=== PATIENT | male | born 1945 | race Caucasian/White ===

== ENCOUNTER 2018-01-04 11:35 | Day surgery (SDC) | payer MEDICARE ==
[~2018-01-04 11:35] MED LIST: Buffered Lidocaine 0.9% SYRIN* 5 ML/SYR SYRINGE INTRADERM ONE
[2018-01-04] MEDS ORDERED: Midazolam* 1 MG/ML 2 ML VIAL (2 MG) ONE ×2 (13:58→14:00)
[2018-01-04 14:35] VITALS: BP 140/79
[2018-01-04] MEDS ORDERED: Cyclopentolate 1% OPTH.SOL* 2 ML BTL ONE (15:43)
[2018-01-04] MEDS ORDERED: Lidocaine 2% EPI 1:200000 MPF*10-20 ML VIAL ONE (15:43)
[2018-01-04] MEDS ORDERED: Ketorolac 0.5% OPHTH (NF) 0.5 % 5 ML BTL ONE (15:43)
[2018-01-04] MEDS ORDERED: acetaZOLAMIDE TAB* 250 MG ONE (15:43)
[2018-01-04] MEDS ORDERED: Neomycin/Polymy/Dex OPTH.SUSP* MAXITROL 0.1% 5 ML ONE (15:43)
[2018-01-04] MEDS ORDERED: Proparacaine 0.5% OPHTH.SOL* 15 ML BTL ONE (15:43)
[2018-01-04] MEDS ORDERED: Phenylephrine 2.5% OPTH.SOL* 2 ML BTL ONE (15:43)
[2018-01-04] MEDS ORDERED: Povidone Iodine 5% OPTH* 30 ML BTL ONE (15:43)
[2018-01-04] MEDS ORDERED: Lidocaine 1%* 5 ML VIAL ONE (15:43)
--- NOTE | 2018-01-05 04:57 | OP ---
DATE OF OPERATION: 01/04/18 [facility] DATE OF : 41 SURGEON: William Stevenson M.D. PREOPERATIVE DIAGNOSIS: Cataract, left eye. POSTOPERATIVE DIAGNOSIS: Cataract, left eye. OPERATIVE PROCEDURE: Extracapsular cataract extraction with intraocular lens implant, left eye. DESCRIPTION OF PROCEDURE: The patient was brought to the operating room after being given 1/2% Alcaine with epinephrine drops in the preoperative area. The eye was prepped and draped in the usual sterile fashion. Sterile drape and eyelid speculum were placed. Again, topical 1/2% Alcaine with epinephrine was given. A paracentesis incision was made at the 3 o'clock position with the No.75 blade. Clear cornea incision 2.2 x 2.2-mm was created at the 6 o'clock position starting at the anterior limbus using the 2.2-mm keratome. The anterior chamber was irrigated with 0.4 mL of 1% non-preservative intracameral lidocaine and filled with DisCoVisc. A capsulorrhexis was completed using the cystotome and the Utrata forceps. Hydrodissection was performed with balanced salt solution. The lens nucleus was removed with the Phacoemulsification handpiece without incident. Cortex was removed with the irrigation-aspiration handpiece. The capsular bag was re-inflated using DisCoVisc and an SN60WF 24.5 implant was inserted with the shooter. The irrigation-aspiration handpiece was used to remove all residual DisCoVisc. The eye was refilled with balanced salt solution and the wound checked and found to be watertight. Topical Maxitrol drops were given. [id number]/[facility] #: [id number] MTDD
== END 2018-01-11 13:48 | disposition home or self-care (01) ==
LOC: OREAST 11:35
PROVIDERS: ATTEND Specialist
DX: H25.812 Combined forms of age-related cataract, left eye (principal); H35.3132 Nonexudative age-related macular degeneration, bilateral, intermediate dry stage; Z85.51 Personal history of malignant neoplasm of bladder; J44.9 Chronic obstructive pulmonary disease, unspecified; K21.9 Gastro-esophageal reflux disease without esophagitis; Z87.891 Personal history of nicotine dependence
CPT/HCPCS: A9270-GY; J2250; V2632

== ENCOUNTER → 2018-01-11 | Day surgery (SDC) | payer MEDICARE ==
[~2018-01-11] MED LIST changes: +Acetaminophen TAB* 325 MG PO PRN; +Cyclopentolate 1% OPTH.SOL* 2 ML BTL ONE; +Ketorolac 0.5% OPHTH (NF) 0.5 % 5 ML BTL ONE; +Lidocaine 1%* 5 ML VIAL ONE; +Lidocaine 2% EPI 1:200000 MPF*10-20 ML VIAL ONE; +Midazolam* 1 MG/ML 5 ML VIAL (5 MG) ONE; +Neomycin/Polymy/Dex OPTH.SUSP* MAXITROL 0.1% 5 ML ONE; +Phenylephrine 2.5% OPTH.SOL* 2 ML BTL ONE; +Povidone Iodine 5% OPTH* 30 ML BTL ONE; +Proparacaine 0.5% OPHTH.SOL* 15 ML BTL ONE; +acetaZOLAMIDE TAB* 250 MG ONE; +fentaNYL* 50 MCG/ML 2 ML VIAL (100 MCG VIAL) ONE
[2018-01-11 13:44] VITALS: BP 134/72
--- NOTE | 2018-01-11 16:30 | OP ---
DATE OF OPERATION: 01/11/2018 - [facility] DATE OF : 1945. SURGEON: William Stevenson M.D. PREOPERATIVE DIAGNOSIS: Cataract right eye. POSTOPERATIVE DIAGNOSIS: Cataract right eye. OPERATIVE PROCEDURE: Extracapsular cataract extraction with intraocular lens implant right eye. DESCRIPTION OF PROCEDURE: The patient was brought to the operating room after being given 1/2% Alcaine with epinephrine drops in the preoperative area. The eye was prepped and draped in the usual sterile fashion. Sterile drape and eyelid speculum were placed. Again, topical 1/2% Alcaine with epinephrine was given. A paracentesis incision was made at the 9 o'clock position with the No.75 blade. Clear cornea incision 2.2 x 2.2-mm was created at the 12 o'clock position starting at the anterior limbus using the 2.2-mm keratome. The anterior chamber was irrigated with 0.4 mL of 1% non-preservative intracameral lidocaine and filled with DisCoVisc. A capsulorrhexis was completed using the cystotome and the Utrata forceps. Hydrodissection was performed with balanced salt solution. The lens nucleus was removed with the Phacoemulsification handpiece without incident. Cortex was removed with the irrigation-aspiration handpiece. The capsular bag was re-inflated using DisCoVisc and an [id number] 25 implant was inserted with the shooter. The irrigation-aspiration handpiece was used to remove all residual DisCoVisc. The eye was refilled with balanced salt solution and the wound checked and found to be watertight. Topical Maxitrol drops were given. [id number]/[facility] #: [id number] [facility]
== END | disposition home or self-care (01) ==
LOC: OREAST 10:54
PROVIDERS: ATTEND Specialist
DX: H25.811 Combined forms of age-related cataract, right eye (principal); H35.3132 Nonexudative age-related macular degeneration, bilateral, intermediate dry stage; Z87.891 Personal history of nicotine dependence; I10 Essential (primary) hypertension; K21.9 Gastro-esophageal reflux disease without esophagitis; Z85.89 Personal history of malignant neoplasm of other organs and systems; Z85.51 Personal history of malignant neoplasm of bladder
CPT/HCPCS: A9270-GY; J2250; J3010; V2632

== ENCOUNTER 2019-05-21 23:20 | Emergency (ER) | payer MEDICARE ==
--- OUTSIDE RECORDS SUMMARY | 2019-05-21 23:35 | XMS REPORT | Summary of Care ---
:1945 Author Organization [facility] Address [address] [place] [place] [address] Care Team Providers Name Role Phone ZhangOsiel Ran Primary Care Provider Reason for Visit Reason Comments Cough started 2-3 weeks ago, runny nose, coughing, mucous(clear) Encounter Details Date Type Department Care Team Description 05/01/2019 Office Visit [place] [facility] Jono Johnston, Obstructive chronic Medicine [place] bronchitis with acute [address] exacerbation (HCC) [place] [address] [place] [address] (Primary Dx) [phone] Allergies Active Allergy Reactions Severity Noted Date Comments Penicillins 02/04/2004 documented as of this encounter (statuses as of 05/01/2019) Medications Medication Sig Dispensed Refills Start Date End Date Status Multiple Vitamin Take by mouth 0 Active (MULTI-VITAMIN DAILY DAILY. PO) aspirin 81 MG Oral Take 1 Tab by 30 Tab 0 05/16/2018 Active Tab EC mouth DAILY. Potassium 99 MG Oral Take 99 mg by 0 Active Tab mouth DAILY. atorvastatin Take 1 Tab by 90 Tab 3 06/12/2018 Active (LIPITOR) 40 MG Oral mouth EVERY TabIndications: BEDTIME. Coronary artery disease involving [place] coronary artery of [place] heart without angina pectoris hydrOXYzine HCL Take 1 Tab by 60 Tab 5 06/19/2018 Active (ATARAX) 25 MG Oral mouth EVERY EIGHT Tab HOURS NEEDED (anxiety). ALPRAZolam (XANAX) Take 0.5 mg by 0 Active 0.5 MG Oral Tab mouth TWO TIMES DAILY NEEDED. Multiple Take 1 Cap by 0 Active Vitamins-Minerals mouth TWICE DAILY. (ICAPS AREDS 2) Oral Cap MELATONIN PO Take by mouth 0 Active NEEDED. CALCIUM-VITAMIN D PO Take 1 Tab by 0 Active mouth DAILY. Tamsulosin HCl Take 1 Cap by 90 Cap 3 09/07/2018 Active (FLOMAX) 0.4 MG Oral mouth DAILY. Cap FLOVENT HFA 220 TAKE 2 PUFFS BY 12 Inhaler 3 02/13/2019 Active MCG/ACT Inhalation INHALATION TWICE Aerosol DAILY. Ranitidine 150 MG TAKE 1 CAPSULE BY 180 Cap 1 2019 Active Oral Cap MOUTH TWICE A DAY ANORO ELLIPTA 62.5-25 INHALE 1 PUFF 60 Each 5 03/29/2019 Active MCG/INH Inhalation DAILY AEROSOL POWDER, BREATH ACTIVATED albuterol HFA INHALE 2 PUFFS 54 Inhaler 2 04/18/2019 Active (VENTOLIN) 108 (90 EVERY 4 HOURS Base) MCG/ACT NEEDED FOR Inhalation Aero Soln WHEEZE/COUGH azithromycin Take 2 pills on 6 Tab 0 05/01/2019 Active (ZITHROMAX Z-ORIANA) 250 the first day and MG Oral 1 pill each day TabIndications: for 4 days Obstructive chronic bronchitis with acute exacerbation (HCC) predniSONE Take 2 Tabs by 10 Tab 0 05/01/2019 Active (DELTASONE) 20 MG mouth DAILY. Oral TabIndications: Obstructive chronic bronchitis with acute exacerbation (HCC) Benzonatate 200 MG Take 1 Cap by 42 Cap 0 05/01/2019 Active Oral Cap mouth THREE TIMES DAILY NEEDED (For cough). documented as of this encounter (statuses as of 05/01/2019) Active Problems Problem Noted Date Dysphagia 06/22/2018 Cancer Survivorship 06/13/2018 Overview: Cancer Goal Cancer Survivorship Care Plan Survivorship Treatment Summary [facility] [address] [facility]. [place] [address] PHONE: [phone] Patient Information: NAME: Avtar Galloway : 1945 Diagnosis and Staging: Erick 3+3 prostate cancer on a background of PSA 4.3 04/22/2017 Surgery: N/A Chemotherapy/Endocrine therapy: N/A Radiation Therapy: N/A Clinical Trial: N/A Genetic/Mutation Testing: N/A Ongoing Treatment: N/A Cancer Care Team: (include institution of [facility]) Urologist: Aashish Steinberg MD Phone: [phone] Nurse Practitioner: Angelina Mcmillan NP Phone: [phone] Cancer Surveillance or other Recommended Tests Prostate Cancer (N1 on ADT or Localized on observation) Physical exam + PSA every 3-6 months Bone imaging for symptoms and as often as every 6-12 months Cancer survivors may experience possible late and/or Long-Term Effect. If you have any concerns in these or other areas, please speak with your health care providers to find out how you can get help with them. Anxiety or depression, Emotional and mental health, Fatigue, Bladder/Bowel problems, Fertility, Osteoporosis, Lung problems, Memory or concentration loss, Second cancer, Cardiac issues, Nail/Skin issues , Hot flashes, Sexual functioning, Dental/Mouth problems, Weight changes and Peripheral Neuropathy Any of these new, unusual and/or persistent symptoms should be brought to the attention of your provider: Swelling of arms and legs, Unintentional Weight Loss, Nausea and Vomiting, Cough, Fatigue, Numbness, Night sweats, Unexplained fever, New lumps, Loss of appetite, Chest discomfort, Unusual bleeding, Sharee rtness of breath or problems breathing, Change in bowel habits, Depression/ Emotional changes and Change in moles or any skin changes/lesions Resources you may be interested in: www.cancer.net Other comments: Prepared by: Kesha Leihg RN Delivered by: Delivered on: This Survivorship Care Plan is a cancer treatment summary and follow-up plan and is provided to you to keep with your health care records and to share with your primary care provider or any of your doctors and nurses. This summary is a brief record of major aspects of your cancer treatment not a detailed or comprehensive record of your care. Take all prescribed medications as directed This is an individualized self-management goal for Avtar Galloway: Please take all prescribed medications as directed. 1. Do not skip doses. If you cannot afford your medications, talk with your doctor. 2. Use a pill reminder system such as a pill box if needed. Your pharmacist can help you with this. 3. Contact your Pharmacy 5 days before your medication runs out. If you cannot take your medications for any reasons, talk with your doctor. 4. Please bring all of your medication bottles and inhalers (or a list of all your medications/inhalers) with you to every visit. Potential barriers to meeting all of your care plan goals will continue to be addressed on an ongoing basis. 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 Non-cardiac chest pain 04/18/2007 Elevated prostate specific antigen (PSA) 04/18/2007 Overview: 6.0 2005. Personal history of tobacco use, presenting hazards to health 04/18/2007 Deafness 04/18/2007 Overview: Right ear S/p right ear surgery 1970s due to meniere's disease documented as of this encounter (statuses as of 05/01/2019) Resolved Problems Problem Noted Date Resolved Date Gross hematuria 04/30/2017 05/08/2018 Acute cystitis with hematuria 04/30/2017 05/08/2018 documented as of this encounter (statuses as of 05/01/2019) Immunizations Name Administration Dates Next Due Influenza (IM) Preservative Free 01/02/2018, 02/25/2014, 01/23/2010 Influenza Vaccine 65 Yrs + 02/22/2019 Influenza Vaccine High Dose 01/13/2017, 02/03/2015 PNEUMOCOCCAL POLYSACCHARIDE VACCINE 02/25/2009 Pneumococcal Conjugate(13 Valent) 01/12/2017 TDAP Vaccine 02/20/2008 documented as of this encounter Social History Tobacco Use Types Packs/Day Years Used Date Former Smoker Cigars, Cigarettes 1.5 40 Quit: 02/03/2008 Smokeless Tobacco: Never Used Comments: patient quit cigarettes years before cigars Alcohol Use Drinks/Week oz/Week Comments Yes 7 Shots of liquor 7.0 beer, wine, whiskey on occasion--has a night cap with his neighbor Social Isolation Answer Date Recorded In a typical week, how many times do you More than three times a week 2018 talk on the phone with family, friends, or neighbors? How often do you get together with friends More than three times a week 05/08 or relatives? How often do you attend jew or 1 to 4 times per year 05/08/2018 christianity services? Do you belong to any clubs or Yes 05/08/2018 organizations such as jew groups, unions, fraternal or athletic groups, or school groups? How often do you attend meetings of the More than 4 times per year 05/08/2018 clubs or organizations you belong to? Are you now , , , 05/08/2018 , never or living with a partner? Physical Activity Answer Date Recorded On average, how many days per week do you engage in moderate to 0 days 2018 strenuous exercise (like walking fast, running, jogging, dancing, swimming, biking, or other activities that cause a light or heavy sweat)? On average, how many minutes do you engage in exercise at this 0 min 2018 level? Stress Answer Date Recorded Do you feel stress - tense, restless, nervous, or Only a little 05/08/2018 anxious, or unable to sleep at night because your mind is troubled all the time - these days? Financial Resource Strain Answer Date Recorded How hard is it for you to pay for the very basics like Not hard at all 2018 food, housing, medical care, and heating? Intimate Partner Violence Answer Date Recorded Within the last year, have you been afraid of your partner or No 05/08/2018 ex-partner? Within the last year, have you been humiliated or emotionally No 05/08/2018 abused in other ways by your partner or ex-partner? Within the last year, have you been kicked, hit, slapped, or No 05/08/2018 otherwise physically hurt by your partner or ex-partner? Within the last year, have you been raped or forced to have any No 05/08/2018 kind of sexual activity by your partner or ex-partner? Food Insecurity Answer Date Recorded Within the past 12 months, you worried that your food would Never true 2018 run out before you got money to buy more. Within the past 12 months, the food you bought just didn't Never true 2018 last and you didn't have money to get more. Transportation Needs Answer Date Recorded In the past 12 months, has lack of transportation kept you from No 05/08/2018 medical appointments or from getting medications? In the past 12 months, has lack of transportation kept you from No 05/08/2018 meetings, work, or getting things needed for daily living? Sex Assigned at Date Recorded Not on file Job Start Date Occupation Industry Not on file Not on file Not on file Travel History Travel Start Travel End No recent travel history available. documented as of this encounter Last Filed Vital Signs Vital Sign Reading Time Taken Comments Blood Pressure 130/61 05/01/2019 1:24 PM EST Pulse 62 05/01/2019 1:24 PM EST Temperature 36.8 05/01/2019 1:24 PM EST C (98.2 F) Respiratory Rate - - Oxygen Saturation 98% 05/01/2019 1:24 PM EST Inhaled Oxygen Concentration - - Weight 77.6 kg (171 lb) 05/01/2019 1:24 PM EST Height 175.3 cm (5' 9") 05/01/2019 1:24 PM EST Body Mass Index 25.25 05/01/2019 1:24 PM EST documented in this encounter Patient Instructions Patient InstructionsJono Johnston PA - 05/01/2019 1:20 PM ESTZ-Pack and Prednisone sent in. Make sure you complete the course of antibiotics. Call with any questions or concerns. Follow up as needed.Electronically signed by Jono Johnston PA at 2019 1:46 PM EST documented in this encounter Progress Notes Jono Johnston PA - 05/01/2019 1:20 PM EST PATIENT: Avtar Galloway : 1945 DATE OF SERVICE: 05/01/2019 Subjective SUBJECTIVE: Avtar Galloway is a 74-y.o. male who presents for evaluation of productive cough with sputum described as clear, repetitive sneezing and sore throat. Symptoms began 3 weeks ago and are gradually worsening since that time. Past history is significant for frequent episodes of bronchitis, chronic obstructive pulmonary disease and tobacco abuse. Past Medical History: Diagnosis Date Acute cystitis with hematuria 04/30/2017 Arthritis Deafness 04/18/2007 Dyspnea on exertion 04/18/2007 Elevated prostate specific antigen (PSA) 04/18/2007 Gastroesophageal reflux disease without esophagitis 04/30/2017 Hypertrophy of prostate without urinary obstruction and other lower urinary tract symptoms (LUTS) 04/18/2007 Nocturia 04/18/2007 Obstructive chronic bronchitis with exacerbation (HCC) 04/18/2007 Other chest pain Personal history of tobacco use, presenting hazards to health 04/18/2007 Urinary frequency 04/18/2007 Family History Problem Relation Age of Onset Heart Father Heart Mother Current Outpatient Medications Medication Sig albuterol HFA (VENTOLIN) 108 (90 Base) MCG/ACT Inhalation Aero Soln INHALE 2 PUFFS EVERY 4 HOURS NEEDED FOR WHEEZE/COUGH ALPRAZolam (XANAX) 0.5 MG Oral Tab Take 0.5 mg by mouth TWO TIMES DAILY NEEDED. ANORO ELLIPTA 62.5-25 MCG/INH Inhalation AEROSOL POWDER, BREATH ACTIVATED INHALE 1 PUFF DAILY aspirin 81 MG Oral Tab EC Take 1 Tab by mouth DAILY. atorvastatin (LIPITOR) 40 MG Oral Tab Take 1 Tab by mouth EVERY BEDTIME. azithromycin (ZITHROMAX Z-ORIANA) 250 MG Oral Tab Take 2 pills on the first day and 1 pill each day for 4 days Benzonatate 200 MG Oral Cap Take 1 Cap by mouth THREE TIMES DAILY NEEDED (For cough). CALCIUM-VITAMIN D PO Take 1 Tab by mouth DAILY. FLOVENT HFA 220 MCG/ACT Inhalation Aerosol TAKE 2 PUFFS BY INHALATION TWICE DAILY. hydrOXYzine HCL (ATARAX) 25 MG Oral Tab Take 1 Tab by mouth EVERY EIGHT HOURS NEEDED (anxiety). MELATONIN PO Take by mouth NEEDED. Multiple Vitamin (MULTI-VITAMIN DAILY PO) Take by mouth DAILY. Multiple Vitamins-Minerals (ICAPS AREDS 2) Oral Cap Take 1 Cap by mouth TWICE DAILY. Potassium 99 MG Oral Tab Take 99 mg by mouth DAILY. predniSONE (DELTASONE) 20 MG Oral Tab Take 2 Tabs by mouth DAILY. Ranitidine 150 MG Oral Cap TAKE 1 CAPSULE BY MOUTH TWICE A DAY Tamsulosin HCl (FLOMAX) 0.4 MG Oral Cap Take 1 Cap by mouth DAILY. No current facility-administered medications for this visit. Allergies Allergen Reactions Pcn [Penicillins] Social History Socioeconomic History Marital status: Spouse name: Not on file Number of children: Not on file Years of education: Not on file Highest education level: Not on file Occupational History Not on file Social Needs Financial resource strain: Not hard at all Food insecurity Worry: Never true Inability: Never true Transportation needs Medical: No Non-medical: No Tobacco Use Smoking status: Former Smoker Packs/day: 1.50 Years: 40.00 Pack years: 60.00 Types: Cigars, Cigarettes Last attempt to quit: 02/03/2008 Years since quittin.2 Smokeless tobacco: Never Used Tobacco comment: patient quit cigarettes years before cigars Substance and Sexual Activity Alcohol use: Yes Alcohol/week: 7.0 standard drinks Types: 7 Shots of liquor per week Comment: beer, wine, whiskey on occasion--has a night cap with his neighbor Drug use: No Sexual activity: Yes Partners: Female Lifestyle Physical activity Days per week: 0 days Minutes per session: 0 min Stress: Only a little Relationships Social connections Talks on phone: More than three times a week Gets together: More than three times a week Attends christianity service: 1 to 4 times per year Active member of club or organization: Yes Attends meetings of clubs or organizations: More than 4 times per year Relationship status: Intimate partner violence Fear of current or ex partner: No Emotionally abused: No Physically abused: No Forced sexual activity: No Other Topics Concern Back Care Not Asked Bike Helmet Not Asked Blood Transfusions Not Asked Caffeine Concern Not Asked Exercise Yes Comment: walking Hobby Hazards Not Asked International Travel Not Asked Service Not Asked Occupational Exposure Not Asked Seat Belt Not Asked Self-Exams Not Asked Sleep Concern Not Asked Special Diet No Stress Concern Not Asked Weight Concern No Social History Narrative Retired- 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 Negative for chills, fever and weight loss. HENT: Positive for congestion and sore throat. Negative for ear pain. Eyes: Negative for pain and discharge. Respiratory: Positive for cough and sputum production. Negative for shortness of breath and wheezing. Cardiovascular: Negative for chest pain, palpitations and leg swelling. Gastrointestinal: Negative for diarrhea, heartburn, nausea and vomiting. Genitourinary: Negative for dysuria and urgency. Musculoskeletal: Negative for myalgias and neck pain. Neurological: Negative for dizziness, weakness and headaches. Objective OBJECTIVE: BP 130/61 (BP Location: Right arm, Patient Position: Sitting) | Pulse 62 | Temp 98.2 F (36.8 C) (Tympanic) | Ht 5' 9" (1.753 m) | Wt 171 lb ( 77.6 kg) | SpO2 98% | BMI 25.25 kg/m GENERAL: alert, cooperative, no distress. CYANOSIS: absent. HEENT: ears, nose, throat exam normal, no neck nodes or sinus tenderness. LUNGS: Diminished to ausculation, most likely a result of his COPD. HEART: regular rate and rhythm, S1, S2 normal, no murmur, click, rub or gallop. ABDOMEN: soft, non-tender. Bowel sounds normal. No masses, no organomegaly. EXTREMITIES: extremities normal, atraumatic, no cyanosis or edema. NEUROLOGICAL: alert, oriented times three, no defects noted in general exam. ASSESSMENT: ICD-9-CM ICD-10-CM 1. Obstructive chronic bronchitis with acute exacerbation (HCC) 491.21 J44.1 azithromycin (ZITHROMAXZ-ORIANA) 250 MG Oral Tab predniSONE (DELTASONE) 20 MG Oral Tab Plan PLAN: 1. Antibiotics and prednisone per orders, prescribed based on high risk of bacterial infection due to history of COPD. 2. Rest, fluids, acetaminophen, [id number], cough syrups as needed, and humidification. 3. Recheck as needed for persistence, worsening, appearance of new symptoms. Author: POOL Aparicio 05/01/2019 17:16 documented in this encounter Plan of Treatment Date Type Specialty Care Team Description 06/20/2019 Office Visit Urology Aashish Steinberg MD [address] [place] [address] Health Maintenance Due Date Last Done Comments HIV SCREENING 1958 ZOSTER IMMUNIZATION SERIES 1993 (1 of 2) MEDICARE ANNUAL WELLNESS 04/14/2016 04/14/2015, 04/14/2015 VISIT DTaP/Tdap/Td Vaccines (2 - 2018 02/20/2008 Tdap) FALL RISK ASSESSMENT 06/23/2019 06/22/2018, 06/22/2018 LUNG CANCER SCREENING 07/13/2019 07/12/2018 DEPRESSION SCREENING 05/01/2020 05/01/2019 Colonoscopy 02/28/2021 02/28/2018, 02/28/2018, 02/20/2018, Additional history exists PNEUMOCOCCAL 65+YRS Completed 01/12/2017, 02/25/2009 INFLUENZA VACCINE Completed 02/22/2019, 01/02/2018, 01/13/2017, Additional history exists HEPATITIS A IMMUNIZATION Aged Out No longer eligible SERIES based on patient's age to complete this topic HPV IMMUNIZATION SERIES Aged Out No longer eligible based on patient's age to complete this topic MENINGOCOCCAL VACCINE IMM Aged Out No longer eligible based on patient's age to complete this topic documented as of this encounter Goals Goal Patient Goal Associated Recent Patient-Stated? Author Type Problems Progress Blood Pressure Blood Pressure 130/61 No [place], < 150/90 (05/01/2019 Osiel Tong, 1:24 PM EST) Note: This is an individualized treatment (blood pressure) goal for Avtar Galloway: Displayed above (on the left) is your goal for blood pressure control. Your most recent blood pressure is also shown above, on the right. You should try to achieve blood pressures that are lower than your goal listed above (on the left). Cancer Survivorship Care Plan Cancer Cancer Survivorship No Kesha Leigh RN Note: Survivorship Treatment Summary [address] [place] [address] PHONE: [phone] Patient Information: NAME: Avtar Galloway : 1945 Diagnosis and Staging: [place] 3+3 prostate cancer on a background of PSA 4.3 04/22/2017 Surgery: N/A Chemotherapy/Endocrine therapy: N/A Radiation Therapy: N/A Clinical Trial: N/A Genetic/Mutation Testing: N/A Ongoing Treatment: N/A Cancer Care Team: (include institution of [facility]) Urologist: Aashish Steinberg MD Phone: [phone] Nurse Practitioner: Angelina Mcmillan NP Phone: [phone] Cancer Surveillance or other Recommended Tests Prostate Cancer (N1 on ADT or Localized on observation) Physical exam + PSA every 3-6 months Bone imaging for symptoms and as often as every 6-12 months Cancer survivors may experience possible late and/or Long-Term Effect. If you have any concerns in these or other areas, please speak with your health care providers to find out how you can get help with them. Anxiety or depression, Emotional and mental health, Fatigue, Bladder/Bowel problems, Fertility, Osteoporosis, Lung problems, Memory or concentration loss, Second cancer, Cardiac issues, Nail/Skin issues , Hot flashes, Sexual functioning, Dental/Mouth problems, Weight changes and Peripheral Neuropathy Any of these new, unusual and/or persistent symptoms should be brought to the attention of your provider: Swelling of arms and legs, Unintentional Weight Loss, Nausea and Vomiting, Cough, Fatigue, Numbness, Night sweats, Unexplained fever, New lumps, Loss of appetite, Chest discomfort, Unusual bleeding, Sharee rtness of breath or problems breathing, Change in bowel habits, Depression/ Emotional changes and Change in moles or any skin changes/lesions Resources you may be interested in: www.cancer.net Other comments: Prepared by: Kesha Leigh RN Delivered by: Delivered on: This Survivorship Care Plan is a cancer treatment summary and follow-up plan and is provided to you to keep with your health care records and to share with your primary care provider or any of your doctors and nurses. This summary is a brief record of major aspects of your cancer treatment not a detailed or comprehensive record of your care. Work with your Lei Maker Fadia Tee, AMELIA Note: This is an individualized treatment (frequent ED use) goal for Avtar Galloway: Please work with your Lei Maker, who will assist you in meeting your goals of care. Keep immunizations current Lifestyle Osiel Neville MD Note: This is an individualized lifestyle goal for Avtar Galloway: Please be sure to keep up-to-date on recommended immunizations. For example, this would include a yearly influenza vaccine. Immunization status can be seen by looking at the Health Maintenance sections of your [facility], Plan of Care, and any After Visit Summaries. Regular appointments with primary care provider Fadia Howard RN (PCP) Note: This is an individualized lifestyle goal for Avtar Galloway: Please schedule regular visits with your primary care provider (PCP). Care provided in your PCP's office can help reduce your need for additional trips to the Emergency Room. Take all prescribed medications as Self-management Osiel Neville MD directed Note: This is an individualized self-management goal for Avtar Galloway: Please take all prescribed medications as directed. 1. Do not skip doses. If you cannot afford your medications, talk with your doctor. 2. Use a pill reminder system such as a pill box if needed. Your pharmacist can help you with this. 3. Contact your Pharmacy 5 days before your medication runs out. If you cannot take your medications for any reasons, talk with your doctor. 4. Please bring all of your medication bottles and inhalers (or a list of all your medications/inhalers) with you to every visit. Potential barriers to meeting all of your care plan goals will continue to be addressed on an ongoing basis. documented as of this encounter Implants Implanted Type Area Aviation Neuropsychologist Device Shelf Model / Serial Identifier Expiration / Lot Date Resolution 360 [employer] 11/27/2020 [id number] / Implanted: Qty: 4 on 02/28/2018 by Khurram Estrella MD at [facility] / [id number] Description:TEMPORARY COLONIC CLIP - To be charged by GI documented as of this encounter Results Not on filedocumented in this encounter Visit Diagnoses Diagnosis Obstructive chronic bronchitis with acute exacerbation (HCC) Obstructive chronic bronchitis with exacerbation documented in this encounter Insurance Payer Benefit Plan / Subscriber ID Effective Dates Phone Address Type Group AETNA MEDICARE [id number] [facility]Present [place], [place]([id number]) Guarantor Name Account Type Relation to Date of Phone Billing Patient Address Avtar Galloway Personal/Family [address] (Home) [address] [place] (Work) [phone] documented as of this encounter Advance Directives Code Status Date Activated Date Inactivated Comments Full Code 07/12/2018 3:44 AM 07/14/2018 1:24 PM 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 Yes Order was discussed with: Patient I discussed all options and patient/surrogate requested and agreed to: Full Code Full Code 05/08/2018 11:32 AM 05/15/2018 9:01 PM Does the patient have decision making capacity? Yes Order was discussed with: Patient I discussed all options and patient/surrogate requested and agreed to: Full Code Full Code 02/27/2018 2:29 AM 03/01/2018 5:45 PM Does patient have decision making capacity? yes Order discussed with: Patient I discussed all options and patient/surrogate requested and agreed to: Full Code Full Code 04/30/2017 1:13 PM 05/02/2017 12:18 PM Does patient have decision making capacity? yes Order discussed with: Patient I discussed all options and patient/surrogate requested and agreed to: Full Code Full Code 04/05/2017 9:35 AM 04/05/2017 2:26 PM Does patient have decision making capacity? yes
[2019-05-22 00:52] LABS: ABS Eosinophils 0.1 10^3/ul (0-0.6); ABS Lymphocytes 1.5 10^3/ul (1.0-4.8); ABS Monocytes 0.8 10^3/ul (0-0.8); ABS Neutrophils 7.4 10^3/ul (1.5-7.7); Eosinophil % 1.2 %; Hematocrit 40 % (42-52); Hemoglobin 13.5 g/dL (14.0-18.0); Lymphocyte % 15.3 %; Mean Corpuscular HGB Conc 34 g/dL (31-36); Mean Corpuscular Hemoglobin 32 pg (27-31); Mean Corpuscular Volume 93 fL (80-94); Mean Platelet Volume 7.8 fL (7.4-10.4); Platelet Count 255 10^3/uL (150-450); Red Blood Count 4.29 10^6 /uL (4.18-5.48); Red Cell Distribution Width 15 % (10-15); White Blood Count 9.9 10^3/uL (3.5-10.8)
--- NOTE | 2019-05-22 01:04 | ED ---
Head Injury - HPI Summary HPI Summary: 74-year-old male presents with head injury today. He is walking the stairs and ended up falling hitting his head. He passed out with the fall. He does not remember the event. Tetanus up-to-date. He has a contusion and abrasion to head. Also complaining of right thumb pain. Has laceration to right thumb. tetanus up-to-date. Denies any chest pain or shortness breath. No dizziness. No nausea or vomiting. Denies any neck pain. No change in vision. is right handed. - History Of Current Complaint Chief Complaint: EDHeadInjury Stated Complaint: FALL PER PT Time Seen by Provider: 05/21/19 23:42 Pain Intensity: 8 - Allergies/Home Medications Allergies/Adverse Reactions: Allergies Allergy/AdvReac Type Severity Reaction Status Date / Time Penicillins Allergy Unknown Verified 05/21/19 23:24 Reaction Details PMH/Surg Hx/FS Hx/Imm Hx Endocrine/Hematology History: Denies: Hx Anticoagulant Therapy Cardiovascular History: Reports: Hx Hypertension GI History: Reports: Hx Gastroesophageal Reflux Disease History: Reports: Other Problems/Disorders - BPH, bladder cancer, hx hematuria Musculoskeletal History: Reports: Hx Arthritis Sensory History: Reports: Hx Cataracts - bilateral, Hx Contacts or Glasses - glasses Opthamlomology History: Reports: Hx Cataracts - bilateral, Hx Contacts or Glasses - glasses Psychiatric History: Reports: Hx Anxiety - prn meds - Surgical History Surgery Procedure, Year, and Place: bladder cancer surgery with prostate biopsy - [facility]. tonsillectomy as a child Hx Anesthesia Reactions: No - Immunization History Immunizations Up to Date: Yes Infectious Disease History: No Infectious Disease History: Denies: Traveled Outside the [place] in Last 30 Days - Social History Alcohol Use: Daily Alcohol Amount: one glass bourbon daily Substance Use Type: Reports: None Smoking Status (MU): Former Smoker Type: Cigars Amount Used/How Often: 1 ppd small cigars for 40 yrs Review of Systems Negative: Fever Negative: Chest Pain Negative: Shortness Of Breath Positive: Myalgia - right thumb pain Positive: Other - thumb laceration Positive: Headache All Other Systems Reviewed And Are Negative: Yes Physical Exam Triage Information Reviewed: Yes Vital Signs On Initial Exam: Initial Vitals Temp Pulse Resp BP Pulse Ox 98.2 F 87 18 122/82 94 05/21/19 23:23 05/21/19 23:23 05/21/19 23:23 05/21/19 23:23 05/21/19 23:23 Vital Signs Reviewed: Yes Appearance: Positive: Well-Appearing Skin: Positive: Warm, Dry, Other - 1cm by 1/2cm laceration to right thumb Head/Face: Positive: Normal Head/Face Inspection, Other - contusion and abrasion to forehead Eyes: Positive: Normal, EOMI, ROBB, Conjunctiva Clear ENT: Positive: Pharynx normal, TMs normal Neck: Positive: Other: - nontender neck Respiratory/Lung Sounds: Positive: Clear to Auscultation, Breath Sounds Present Cardiovascular: Positive: Normal, RRR Musculoskeletal: Positive: Other - tenderness snuff box and right thumb pain, good pulses, sensation grossly intact Neurological: Positive: Sensory/Motor Intact, Alert, Oriented to Person Place, Time, CN Intact II-III Psychiatric: Positive: Normal - Sivan Coma Scale Best Eye Response: 4 - Spontaneous Best Motor Response: 6 - Obeys Commands Best Verbal Response: 5 - Oriented Coma Scale Total: 15 Procedures - Sedation Patient Received Moderate/Deep Sedation with Procedure: No - Laceration/Wound Repair 1 Location: Other - right thumb lac Description: Linear Length, Depth and Shape: 1 and 1/2cm lac Closure: Skin Adhesive Diagnostics - Vital Signs Vital Signs Temp Pulse Resp BP Pulse Ox 05/22/19 00:41 19 168/93 05/22/19 00:10 75 12 132/83 97 05/22/19 00:00 80 13 96 05/21/19 23:42 79 8 96 05/21/19 23:40 77 18 152/96 96 05/21/19 23:38 81 96 05/21/19 23:23 98.2 F 87 18 122/82 94 - Laboratory Lab Results: Lab Results 05/22/19 Range/Units 00:43 WBC 9.9 (3.5-10.8) 10^3/uL RBC 4.29 (4.18-5.48) 10^6 /uL Hgb 13.5 L (14.0-18.0) g/dL Hct 40 L (42-52) % MCV 93 (80-94) fL MCH 32 H (27-31) pg MCHC 34 (31-36) g/dL RDW 15 (10-15) % Plt Count 255 (150-450) 10^3/uL MPV 7.8 (7.4-10.4) fL Neut % (Auto) 75.5 % Lymph % (Auto) 15.3 % Meagher % (Auto) 7.8 % Eos % (Auto) 1.2 % Baso % (Auto) 0.2 % Absolute Neuts (auto) 7.4 (1.5-7.7) 10^3/ul Absolute Lymphs (auto) 1.5 (1.0-4.8) 10^3/ul Absolute Monos (auto) 0.8 (0-0.8) 10^3/ul Absolute Eos (auto) 0.1 (0-0.6) 10^3/ul Absolute Basos (auto) 0.0 (0-0.2) 10^3/ul Absolute Nucleated RBC 0.0 10^3/ul Nucleated RBC % 0.0 Result Diagrams: 05/22/19 00:43 05/22/19 00:43 Lab Statement: Any lab studies that have been ordered have been reviewed, and results considered in the medical decision making process. - Radiology hand Radiology Interpretation Completed By: ED Physician Summary of Radiographic Findings: no fracture - CT Brain CT CT Interpretation Completed By: ED Physician Summary of CT Findings: 1. Left frontal subcutaneous hematoma/contusion. No traumatic intracranial. abnormalities. 2. Age-related atrophy and moderate chronic small vessel ischemic disease. ED physician has reviewed this report. Cervical Spine CT CT Interpretation Completed By: ED Physician Summary of CT Findings: 1. No cervical spine traumatic abnormalities. 2. Mild multilevel cervical spondylopathy. 3. Severe emphysema. ED physician has reviewed this report. - EKG 0029 Cardiac Rate: NL - 80 BPM EKG Rhythm: Sinus Rhythm ST Segment: Normal Ectopy: None Summary of EKG Findings: NSR at 80 BPM, P waves, QRS complex, and T waves are within normal limits, T waves and intervals are normal, no ischemic changes. This is a normal EKG. Interpreted by Dr. Dyson at 0122 05/22/2019. Head Injury Course/Dx Course Of Treatment: 74-year-old male presents with head injury today. He is walking the stairs and ended up falling hitting his head. He passed out with the fall. He does not remember the event. Tetanus up-to-date. He has a contusion and abrasion to head. Also complaining of right thumb pain. Has laceration to right thumb. tetanus up-to-date. Denies any chest pain or shortness breath. No dizziness. No nausea or vomiting. Denies any neck pain. No change in vision. is right handed. On exam has superficial laceration to right thumb. Tenderness over thumb and snuffbox. Neurovascularly intact. X- ray shows arthritis and no definitive fracture. Gave him thumb spica splint and told to keep on area. told follow up with ortho. Has a normal neuro exam. Contusion and abrasion of the forehead. CT brain and neck normal. Gave head injury precautions. told follow up with primary. Patient understands and agrees with plan. - Diagnoses Differential Diagnosis/HQI/PQRI: Concussion Without LOC, Contusion, Laceration Provider Diagnoses: Head injury, Laceration of right hand, Injury of right hand Discharge ED - Sign-Out/Discharge Documenting (check all that apply): Patient Departure - Discharge Plan Condition: Good Disposition: HOME Patient Education Materials: Head Injury (ED), Skin Adhesive Care (ED) Referrals: Osiel Holcomb MD [Primary Care Provider] - Parth Rod MD [Medical Doctor] - Additional Instructions: Place ice on area as needed Take Tylenol for headache every 6 hours keep glue dry for next 24 hours keep splint on area follow up with ortho Modify activities as tolerated Follow up with primary within 5 days Return to ED if develop any new or worsening symptoms - Billing Disposition and Condition Condition: GOOD Disposition: Home
[2019-05-22 01:10] LABS: Albumin 4.4 g/dL (3.2-5.2); Calcium 9.1 mg/dL (8.6-10.3); Potassium 3.8 mmol/L (3.5-5.0); Total Bilirubin 0.3 mg/dL (0.2-1.0)
[2019-05-22 01:16] LABS: Albumin/Globulin Ratio 1.6 (1-3); BUN/Creatinine Ratio 15.1 (8-20); EGFR African American 104.6 (>60); EGFR Non-African American 86.5 (>60); Globulin 2.7 g/dL (2-4); Total Protein 7.1 g/dL (6.4-8.9)
[2019-05-22] MEDS ORDERED: Acetaminophen TAB* 325 MG PO ONE (01:54)
[2019-05-22 02:00] VITALS: BP 128/85
--- NOTE | 2019-05-22 08:59 | ED ---
Imaging and Labs Follow Up Follow Up Type: Imaging Imaging Result: IMPRESSION: OBLIQUE, DISPLACED, INTRA-ARTICULAR FRACTURE AT THE BASE OF THE FIRST METACARPAL. R3 Preliminary Imaging Read R3 <Electronically signed by Farhat Glasgow MD in OV> 05/22/19737 Dictated By: Farhat Glasgow MD Dictated Date/Time: 05/22/19734 Transcribed Date/Time: 05/22/19734 Copy to: Patient Communication/Plan: No definitive fx noted in ED but pt. was placed in thumb spica and given ortho. referral in ED. I called and spoke with pt.'s , Lazara, at 1013. She will schedule an apt. with ortho. Will keep splint in place. Provider Diagnoses: Head injury, Laceration of right hand, Injury of right hand Attestation Statement Provider Attestation: I was available for consult. This patient was seen by the MIKEY. The patient was not presented to, seen by, or examined by me. -Elle
== END 2019-05-22 02:00 | disposition home or self-care (01) ==
LOC: ED 23:20
DX: S09.90XA Unspecified injury of head, initial encounter (principal); S62.231A Other displaced fracture of base of first metacarpal bone, right hand, initial encounter for closed fracture; S61.011A Laceration without foreign body of right thumb without damage to nail, initial encounter; W10.9XXA Fall (on) (from) unspecified stairs and steps, initial encounter; Y93.01 Activity, walking, marching and hiking; Y92.9 Unspecified place or not applicable; M48.9 Spondylopathy, unspecified; J43.9 Emphysema, unspecified; I10 Essential (primary) hypertension; F41.9 Anxiety disorder, unspecified; Z79.82 Long term (current) use of aspirin; Z88.0 Allergy status to penicillin; Z87.891 Personal history of nicotine dependence
CPT/HCPCS: 36415; 70450; 72125; 80053; 80320; 85025; 93005; 99283; A9270-GY; G0480

== ENCOUNTER → 2019-05-28 05:53 | Day surgery (SDC) | payer MEDICARE ==
[~2019-05-28 05:53] MED LIST changes: +Acetaminophen IV 1GM/100ML * 100 ML ONE; -Acetaminophen TAB* 325 MG PO PRN; -Buffered Lidocaine 0.9% SYRIN* 5 ML/SYR SYRINGE INTRADERM ONE; +Buffered Lidocaine 1% SYRIN* 1 ML/SYRINGE INTRADERM ONE; +Bupivacaine 0.25% SDV* 30 ML ONE; +Clindamycin 900 MG/D5W BAG(*) 900 MG/50 ML BAG IVPB ONE; -Cyclopentolate 1% OPTH.SOL* 2 ML BTL ONE; +Dexamethasone TAB* 4 MG ONE; +Dexamethasone TAB* 4 MG PO ONE; +DiMENhydriNATE IV* 50 MG/ML VIAL IV PUSH PRN; +Famotidine IV* 10 MG/ML 2 ML (20 mg) IV ONE; +Famotidine IV* 10 MG/ML 2 ML (20 mg) ONE; +HYDROmorphone INJ1* 1 MG/ML SYRINGE IV PRN; +KETAMINE HCL* 50 MG/ML 10 ML VIAL ONE; -Ketorolac 0.5% OPHTH (NF) 0.5 % 5 ML BTL ONE; +Ketorolac INJ* 30 MG/ML 1 ML VIAL ONE; +Lactated Ringers 1000 ML Bag* 1,000 ML IV SCH; -Lidocaine 1%* 5 ML VIAL ONE; -Lidocaine 2% EPI 1:200000 MPF*10-20 ML VIAL ONE; +Lidocaine 2% PF * 5 ML VIAL ONE; +Naloxone* 0.4 MG/ML 1 ML VIAL IV PRN; -Neomycin/Polymy/Dex OPTH.SUSP* MAXITROL 0.1% 5 ML ONE; +Ondansetron ODT TAB* 4 MG ONE; +Ondansetron ODT TAB* 4 MG PO ONE; +PROCHLORPERAZINE INJ 5 MG/ML 2 ML VIAL IV PRN; +Phenylephrine 10 MG/ML VIAL* 1 ML VIAL ONE; -Phenylephrine 2.5% OPTH.SOL* 2 ML BTL ONE; +Phenylephrine 40 MCG/ML SYRINGE ONE; -Povidone Iodine 5% OPTH* 30 ML BTL ONE; -Proparacaine 0.5% OPHTH.SOL* 15 ML BTL ONE; +Propofol* 10 MG/ML 20 ML BTL ONE; -acetaZOLAMIDE TAB* 250 MG ONE; +fentaNYL* 50 MCG/ML 2 ML VIAL (100 MCG VIAL) IV PRN; +oxyCODONE TAB* 5 MG TAB PO PRN
[2019-05-28 10:49] VITALS: BP 108/80
--- NOTE | 2019-05-28 23:38 | OP ---
DATE OF OPERATION: 05/28/19 [facility] DATE OF : 41 SURGEON: Parth Rod MD SHEETER WAXER OPERATOR: POOL Warren. An social media assistant was needed for the procedure to aid in positioning of the arm and assistance with reduction and passage of the instrumentation. ANESTHESIOLOGIST: Dr. White. ANESTHESIA: General. PRE-OP DIAGNOSIS: Right thumb metacarpal displaced Christensen's fracture. POST-OP DIAGNOSIS: Right thumb metacarpal displaced Christensen's fracture. OPERATIVE PROCEDURE: Open reduction and internal fixation of right thumb metacarpal Christensen's fracture. INDICATIONS: Mr. Galloway has a very displaced fracture. We talked about treatment options, risks and benefits. He wants to proceed with surgery. He understands there is a risk of posttraumatic arthrosis even with surgery. ESTIMATED BLOOD LOSS: 2 mL. COMPLICATIONS: None. FINDINGS: See above and below. DESCRIPTION OF PROCEDURE: Mr. Galloway was seen in the preoperative holding area. The correct site, side, and procedure were identified. We came back to the operating room where the arm was prepped and draped in the usual fashion and a time-out was performed. The arm was exsanguinated and the tourniquet inflated. I made a curvilinear incision at the junction of the glabrous and dorsal skin and performed a Atwood approach. I raised the thenar muscles right off the palmar aspect of the metacarpal. The joint capsule was opened. The fracture was identified. I went ahead and cleaned out the soft callus and fracture hematoma and then I used a dental pick and a Atalissa elevator to get the fracture reduced. The fracture was then pinned with three 0.062 K-wires and one 0.045 K-wire. Once I had confirmed the alignment on mini C-arm fluoroscopy and confirmed that everything was looking good, the wires were clipped. I went ahead and repaired the fascia back to the dorsal fascia repairing the muscles back to their origin. The pins were poked through the skin and then the skin was closed with 4-0 nylon suture. 0.25% Marcaine was infiltrated all about the operative area. He was placed in a well padded thumb spica splint and taken to the recovery room in stable condition. [id number]/[facility] #: [id number] [facility]
== END | disposition home or self-care (01) ==
LOC: OR 05:53
PROVIDERS: ATTEND Orthopaedic Surgery Hand Surgery
DX: S62.231A Other displaced fracture of base of first metacarpal bone, right hand, initial encounter for closed fracture (principal); W10.9XXA Fall (on) (from) unspecified stairs and steps, initial encounter; Y92.9 Unspecified place or not applicable; Z87.891 Personal history of nicotine dependence; J44.9 Chronic obstructive pulmonary disease, unspecified; F41.9 Anxiety disorder, unspecified; Z88.0 Allergy status to penicillin; Z85.51 Personal history of malignant neoplasm of bladder
CPT/HCPCS: 76000; A9270-GY; C1776; J1885; J2250; J2704; J3010; J3490; J8540

== ENCOUNTER 2023-11-20 18:30 | Observation (INO) ==
[2023-11-20 19:16] LABS: ABS Lymphocytes 0.2 10^3/uL (1.0-4.8); ABS Monocytes 0.2 10^3/uL (0.0-1.1); ABS Neutrophils 9.1 10^3/uL (1.5-7.6); Hematocrit 38.6 % (38-53); Hemoglobin 13.1 g/dL (13.2-16.3); Lymphocyte % 1.8 %; Mean Corpuscular Hemoglobin 31.8 pg (27-33); Mean Corpuscular Hgb Conc 33.9 g/dL (31-36); Mean Corpuscular Volume 93.9 fL (80-97); Mean Platelet Volume 8.2 fL (7.5-11.2); Platelet Count 155 10^3/uL (150-450); Red Blood Count 4.11 10^6/uL (4.06-5.63); Red Cell Distribution Width 15.1 % (12-17); White Blood Count 9.5 10^3/uL (3.6-10.2)
[2023-11-20] MEDS: Albuterol 2.5mg/3 ml (0.083%) NEB.SOLN INH ONE (19:19)
[2023-11-20] MEDS: methylPREDNISolone SOD SUCC 125 mg 2 ML VIAL IV ONE (19:21)
[2023-11-20] MEDS: fentaNYL 100 mcg/2 ml 50 MCG/ML VIAL IV SLOW PU ONE (19:21)
[2023-11-20 19:37] LABS: INR 1.23 (0.83-1.13)
[2023-11-20 20:00] LABS: Albumin 3.9 g/dL (3.2-5.2); Albumin/Globulin Ratio 1.6 (1-3); Calcium 8.9 mg/dL (8.6-10.3); Creatinine, Serum 1.63 mg/dL (0.67-1.17); Globulin 2.5 g/dL (2-4); Potassium 4.5 mmol/L (3.5-5.0); Total Bilirubin 0.8 mg/dL (0.2-1.0); Total Protein 6.4 g/dL (6.4-8.9); eGFR CKD-EPI 42.3 (>60)
[2023-11-20 20:50] LABS: High Sensitivity Troponin 1 Hr 101 pg/mL (<20)
[2023-11-20] MEDS: Iodixanol (CONTRAST) 320 MG/ML 100 ML SDV IV ONE (21:22)
[2023-11-21 03:21] LABS: High Sensitivity Troponin 3 Hr 72 pg/mL (<20)
[2023-11-21] MEDS ORDERED: Morphine 2 MG/ML SYRINGE IV PRN (04:42)
[2023-11-21] MEDS: Enoxaparin 40 MG/0.4 ML SYR SUBCUT SCH (06:05)
[2023-11-21 06:48] LABS: Calcium 8.8 mg/dL (8.6-10.3); Creatinine, Serum 1.48 mg/dL (0.67-1.17); Magnesium 1.8 mg/dL (1.9-2.7); Potassium 4.5 mmol/L (3.5-5.0); eGFR CKD-EPI 47.5 (>60)
[2023-11-21 07:20] LABS: ABS Lymphocytes 0.4 10^3/uL (1.0-4.8); ABS Monocytes 0.6 10^3/uL (0.0-1.1); ABS Neutrophils 15.2 10^3/uL (1.5-7.6); Hemoglobin 12.4 g/dL (13.2-16.3); Lymphocyte % 2.2 %; Mean Corpuscular Hemoglobin 31.5 pg (27-33); Mean Corpuscular Hgb Conc 33.6 g/dL (31-36); Mean Corpuscular Volume 93.9 fL (80-97); Mean Platelet Volume 9.4 fL (7.5-11.2); Platelet Count 135 10^3/uL (150-450); Red Blood Count 3.94 10^6/uL (4.06-5.63); Red Cell Distribution Width 15.5 % (12-17); White Blood Count 16.2 10^3/uL (3.6-10.2)
[2023-11-21] MEDS: Magnesium Sulfate 2 gm BAG 2 GM/50 ML BAG IVPB ONE (09:22)
[2023-11-21] MEDS: NS 0.9% 1000 ml BAG 500 ML IV SCH (09:30)
[2023-11-21] MEDS: FLUTICAS/UMECLI/VILANT 200-62.5-25 MDI (NF) INH SCH (12:09)
[2023-11-21 12:34] LABS: Urine Appearance Clear; Urine Bilirubin Negative (Negative); Urine Blood 2+ (Negative); Urine Color Yellow; Urine Glucose Negative (Negative); Urine Ketones Trace (Negative); Urine Nitrite Negative (Negative); Urine Protein 1+ (>=30 mg/dL) (Negative); Urine Specific Gravity 1.048 (1.002-1.030); Urine Urobilinogen Negative (Negative); Urine pH 5.5 (5.0-8.0)
[2023-11-21 12:49] LABS: Urine Bacteria Absent /HPF (Absent); Urine Red Blood Cell 3+(>10/hpf) /HPF (0-Trace); Urine Squamous Epithelial Cell Present /HPF (Absent); Urine White Blood Cell Trace(0-5/hpf) /HPF (0-Trace)
[2023-11-21] MEDS: Albuterol/Ipratropium NEB.SOL (2.5/0.5 MG) 3 ML NEB.SOLN INH SCH (13:43)
[2023-11-22 05:34] LABS: Hematocrit 32.9 % (38-53); Hemoglobin 11.2 g/dL (13.2-16.3); Mean Corpuscular Hemoglobin 31.6 pg (27-33); Red Blood Count 3.54 10^6/uL (4.06-5.63); Red Cell Distribution Width 15.5 % (12-17); White Blood Count 10.1 10^3/uL (3.6-10.2)
[2023-11-22 05:41] LABS: C Reactive Protein 212.81 mg/L (<8.01); Calcium 8.7 mg/dL (8.6-10.3); Creatinine, Serum 1.62 mg/dL (0.67-1.17); Magnesium 2.5 mg/dL (1.9-2.7); Potassium 4.4 mmol/L (3.5-5.0); eGFR CKD-EPI 42.6 (>60)
[2023-11-22 05:53] LABS: ABS Lymphocytes 0.3 10^3/uL (1.0-4.8); ABS Monocytes 0.6 10^3/uL (0.0-1.1); ABS Neutrophils 9.2 10^3/uL (1.5-7.6); Lymphocyte % 3.4 %; Mean Platelet Volume 9.4 fL (7.5-11.2); Platelet Count 81 10^3/uL (150-450)
[2023-11-22] MEDS: Enoxaparin 40 MG/0.4 ML SYR SUBCUT SCH (08:47)
[2023-11-22] MEDS: Albuterol 2.5mg/3 ml (0.083%) NEB.SOLN INH PRN (09:38)
[2023-11-22 16:53] LABS: ABS Eosinophils 0.1 10^3/uL (0.0-0.5); ABS Lymphocytes 0.4 10^3/uL (1.0-4.8); ABS Monocytes 0.8 10^3/uL (0.0-1.1); ABS Neutrophils 10.1 10^3/uL (1.5-7.6); Eosinophil % 0.6 %; Hematocrit 32.7 % (38-53); Hemoglobin 11.2 g/dL (13.2-16.3); Lymphocyte % 3.6 %; Mean Corpuscular Hemoglobin 31.6 pg (27-33); Mean Corpuscular Hgb Conc 34.2 g/dL (31-36); Mean Corpuscular Volume 92.5 fL (80-97); Mean Platelet Volume 9.9 fL (7.5-11.2); Platelet Count 80 10^3/uL (150-450); Red Blood Count 3.54 10^6/uL (4.06-5.63); Red Cell Distribution Width 15.5 % (12-17); White Blood Count 11.3 10^3/uL (3.6-10.2)
[2023-11-22 18:07] LABS: Urine Creatinine Concentration 72.54 mg/dL (20.00-370.00); Urine TP Creat Ratio 0.45 mg/mg
[2023-11-23 07:22] LABS: ABS Lymphocytes 0.4 10^3/uL (1.0-4.8); ABS Monocytes 0.4 10^3/uL (0.0-1.1); Eosinophil % 0.4 %; Hemoglobin 10.9 g/dL (13.2-16.3); Lymphocyte % 5.4 %; Mean Corpuscular Hemoglobin 31.7 pg (27-33); Mean Corpuscular Hgb Conc 34.2 g/dL (31-36); Mean Corpuscular Volume 92.5 fL (80-97); Mean Platelet Volume 9.8 fL (7.5-11.2); Platelet Count 74 10^3/uL (150-450); Red Blood Count 3.45 10^6/uL (4.06-5.63); Red Cell Distribution Width 15.6 % (12-17); White Blood Count 7.9 10^3/uL (3.6-10.2)
[2023-11-23 07:57] LABS: Calcium 8.4 mg/dL (8.6-10.3); Creatinine, Serum 1.47 mg/dL (0.67-1.17); Potassium 4.4 mmol/L (3.5-5.0); eGFR CKD-EPI 47.9 (>60)
[2023-11-23] MEDS: Lidocaine PATCH 5% PATCH TRANSDERM SCH (11:15)
[2023-11-23 13:37] VITALS: BP 121/85
[2023-11-23 13:48] LABS: Kappa Free Light Chain 2.98 mg/dL; Lambda Free Light Chain, S 1.87 mg/dL
== END 2023-11-23 14:45 | disposition home or self-care (01) ==
LOC: EDHOLD 18:30 → ED 18:30 → SUATTDRO 11-21 03:16 → MED 11-21 12:04
PROVIDERS: ADMIT Internal Medicine; ATTEND Student in an Organized Health Care Education/Training Program